=== PATIENT | female | born 2000 | race African-American/Black ===

== ENCOUNTER 2023-05-19 11:24 | Day surgery (SDC) | payer OTHER ==
[~2023-05-19] VITALS: Ht 162.6 cm; Wt 77.6 kg
[~2023-05-19 11:24] MED LIST: ACETAMINOPHEN *IV* 1,000 MG in IV 0 EA IV ONE; LR 1,000 ML IV SCH
[2023-05-19] MEDS ORDERED: LR 1,000 ML IV SCH (11:45)
[2023-05-19] MEDS ORDERED: MIDAZOLAM INJ 2MG/2ML VIAL As Ordered ONE (11:46)
[2023-05-19] MEDS ORDERED: LIDOCAINE 2% 100MG/5ML SDV (FOR ANES.) As Ordered ONE (11:47)
[2023-05-19] MEDS ORDERED: ONDANSETRON 4MG 2ML VIAL As Ordered ONE (11:47)
[2023-05-19] MEDS ORDERED: KETOROLAC 60MG 2ML VIAL As Ordered ONE (11:47)
[2023-05-19] MEDS ORDERED: propofoL 200 MG/20 ML VIAL As Ordered ONE ×2 (11:47→14:57)
[2023-05-19] MEDS ORDERED: fentaNYL 100 MCG/2 ML INJECTION As Ordered ONE ×2 (11:47→15:13)
[2023-05-19 12:16] LABS: HEMATOCRIT 40.3 % (36.0-47.0); HEMOGLOBIN 12.9 g/dl (12.0-15.5); MEAN CORPUSCULAR HEMOGLOBIN 29.7 pg (27.0-33.0); MEAN CORPUSCULAR VOLUME 92.6 fl (80.0-96.0); PLATELET COUNT, AUTOMATED 310 10^3/uL (150-450); RED BLOOD COUNT 4.35 10^6/uL (4.00-5.40); WHITE BLOOD COUNT 4.8 10^3/uL (4.0-10.0)
[2023-05-19] MEDS ORDERED: LIDOCAINE 1% SDV 30ML VIAL As Ordered ONE (14:15)
[2023-05-19] MEDS ORDERED: ACETAMINOPHEN 1000MG 100ML IV BAG As Ordered ONE (14:49)
[2023-05-19] MEDS ORDERED: MEPERIDINE 50 MG/ML 1ML VIAL As Ordered ONE (15:57)
[2023-05-19] MEDS ORDERED: ONDANSETRON 4MG 2ML VIAL IV PRN (16:00)
[2023-05-19] MEDS ORDERED: oxyCODONE 5MG TAB PO PRN (16:00)
[2023-05-19] MEDS ORDERED: fentaNYL 100 MCG/2 ML INJECTION IV PRN (16:00)
[2023-05-19] MEDS ORDERED: MORPHINE 2 MG/ML 1ML VIAL IV PRN (16:00)
[2023-05-19 17:00] VITALS: BP 125/72; TEMP 97.2; O2SAT 100
== END 2023-05-19 18:00 | disposition home or self-care (01) ==
LOC: M SDC 11:24
PROVIDERS: ATTEND Obstetrics & Gynecology
DX: N90.60 Unspecified hypertrophy of vulva (principal); J45.909 Unspecified asthma, uncomplicated; F43.10 Post-traumatic stress disorder, unspecified
CPT/HCPCS: 36415; 56620; 81025; 85027; 86850; 86900; 86901; 88302; J0131; J1100; J1885; J2175; J2250; J2405; J3010

== ENCOUNTER 2025-01-11 10:23 | Emergency (ER) | payer OTHER ==
[~2025-01-11] VITALS: Ht 162.6 cm; Wt 75.8 kg
[2025-01-11 10:26] VITALS: BP 125/58; TEMP 97.7; O2SAT 99
[2025-01-11] MEDS: ONDANSETRON 4MG 2ML VIAL IV ONE (12:19)
[2025-01-11] MEDS: PANTOPRAZOLE 40MG VIAL IV ONE (12:20)
[2025-01-11 12:28] LABS: BASO # 0.0 10^3/uL (0.0-0.2); BASO % 0.3 % (0.0-1.0); EOS # 0.0 10^3/uL (0.0-0.5); EOS % 0.2 % (0.0-3.0); LYMPH # 2.3 10^3/uL (1.5-5.0); LYMPH % 34.5 % (24.0-44.0); MONO # 0.6 10^3/uL (0.0-0.8); MONO % 8.4 % (2.0-8.0); NEUTROPHILS # 3.7 10^3/uL (1.5-8.5); NEUTROPHILS % 56.3 % (36.0-66.0); PLATELET COUNT, AUTOMATED 271 10^3/uL (150-450)
[2025-01-11] MEDS: GASTROGRAFIN SOLUTION 30ML PO SCH (12:38)
[2025-01-11 13:17] LABS: ALT/SGPT 9 U/L (7.0-40); AST/SGOT 14 U/L (<34)
[2025-01-11 13:54] LABS: HCG, SERUM QUALITATIVE NEGATIVE (NEGATIVE)
[2025-01-11] MEDS ORDERED: ISOVUE-370 76% 100 ML VIAL As Ordered ONE (14:13)
[2025-01-11] MEDS ORDERED: OMEP40CA4 PO (16:48)
[2025-01-11] MEDS ORDERED: SUCR1TA PO (16:48)
== END 2025-01-11 16:56 | disposition home or self-care (01) ==
LOC: M ED 10:23
DX: K29.00 Acute gastritis without bleeding (principal); N83.292 Other ovarian cyst, left side; Z79.899 Other long term (current) drug therapy
CPT/HCPCS: 74177; 80047; 80076; 83690; 84703; 85025; 96374; 96375; 99284; J2405; J2470; Q9963; Q9967